=== PATIENT | female | born 1975 | race Caucasian/White ===

== ENCOUNTER 2019-04-09 06:55 | Day surgery (SDC) | payer BC ==
[~2019-04-09] VITALS: Ht 162.6 cm; Wt 67.4 kg
[~2019-04-09 06:55] MED LIST: HYDR-4011 PO; PEPCID
[2019-04-09 08:29] VITALS: Ht 162.6 cm; Wt 67.4 kg
[2019-04-09 08:50] VITALS: BP 124/83; PULSE 72; RESP 18
[2019-04-09] MEDS ORDERED: MIDAZOLAM 1 MG/ML 2 ML INJ ONE ×3 (09:42)
[2019-04-09] MEDS ORDERED: FENTAnyl 50 MCG/ML VIAL ONE (09:43)
[2019-04-09 09:59] VITALS: BP 94/57; RESP 25
== END 2019-04-09 11:01 | disposition home or self-care (01) ==
LOC: GIL 06:55
PROVIDERS: ATTEND Internal Medicine Gastroenterology
DX: K64.8 Other hemorrhoids (principal); K29.50 Unspecified chronic gastritis without bleeding; K21.9 Gastro-esophageal reflux disease without esophagitis
CPT/HCPCS: 84703; 88104; 88304; J2250; J3010

== ENCOUNTER 2019-04-11 10:29 | Emergency (ER) | payer BC ==
[~2019-04-11] VITALS: Ht 160 cm; Wt 67.6 kg
[2019-04-11 10:37] VITALS: BP 131/75; PULSE 73; RESP 18; Ht 160 cm; Wt 67.6 kg
== END 2019-04-11 11:59 | disposition home or self-care (01) ==
LOC: FTE 10:29
DX: R51 Headache (principal)
CPT/HCPCS: 99283